=== PATIENT | male | born 1975 | race Caucasian/White ===

== ENCOUNTER 2019-11-01 12:18 | Emergency (ER) | payer MEDICAID, SELFPAY ==
[2019-11-01 12:28] VITALS: BP 161/76; PULSE 72; RESP 22; TEMP 37.5; O2SAT 98
--- NOTE | 2019-11-01 12:29 | ED.SKABFB ---
HPI - Skin/Abscess/Foreign Bdy General Chief complaint: Skin/Abscess/Foreign Body Stated complaint: sore on right leg Time Seen by Provider: 11/01/19 12:29 Source: patient and RN notes reviewed History of Present Illness HPI narrative: Patient is a 44-year-old male that presents the urgent care with complaints of a right leg sore . Patient states that it started approximately 5 to 6 days ago and he was seen at [facility] ER which ruled out blood clot at that time. Patient states that he was put on clindamycin and told that he had an infection in the leg . Patient states the redness, swelling, pain has increased and is now behind the knee and up the right thigh . Patient states that he is also been running a low-grade fever. States that he has been taking the medication as prescribed without any improvement. Patient was also prescribed [place] and states that the pain is still known and severe despite taking the medication. Patient states that he is technically homeless and has been sleeping in a car and therefore has increased swelling in bilateral lower extremities. Denies of any known trauma or injury to the leg. No other acute complaints. No acute distress noted. Patient read the plan of care. Related Data Home Medications Medication Instructions Recorded Confirmed lisinopril-hydrochlorothiazide 1 tablet PO DAILY 11/01/19 11/01/19 venlafaxine 75 mg PO DAILY 11/01/19 11/01/19 Allergies Allergy/AdvReac Type Severity Reaction Status Date / Time Penicillins Allergy Rash Verified 11/01/19 12:44 Review of Systems Review of Systems: Narrative: CONSTITUTIONAL: Denies fever, chills, or sweats. EYES: Denies visual changes, redness, or discharge. ENT: Denies rhinorrhea, congestion, sore throat, or otalgia. CARDIOVASCULAR: Denies chest pain, palpitations, or edema. RESPIRATORY: Denies cough or dyspnea. GASTROINTESTINAL: Denies abdominal pain, nausea, vomiting, or diarrhea. GENITOURINARY: Denies dysuria or hematuria. SKIN: Reports of right leg swelling and redness MUSCULOSKELETAL: Denies back pain, joint pain, or myalgia. NEUROLOGIC: Denies headache, numbness, or weakness. All other systems reviewed are negative, except as documented in HPI. PMFSH Comments At the time of my signature, I reviewed and agree with the nursing past medical, surgical, social, and family history. There is no relevant family history pertinent to the patient complaint. Exam Narrative: Exam Narrative: GENERAL: This is a well-nourished, well-developed patient, in no apparent distress. HEAD: normocephalic, atraumatic. EYES: PERRL. Sclera clear/white. Vision is grossly intact. EARS: External ears normal NOSE: External nose normal with no obvious nasal discharge THROAT: Mucous membranes moist NECK: Neck supple SKIN: Approximately 10 x 20 cm area of firm erythema to the medial right knee extending to the posterior knee and into the posterior right thigh NEURO: awake, alert, and oriented to person, place and time. There were no obvious focal neurologic abnormalities. EXTREMITIES: Right calf tenderness with faint right pedal pulse secondary to 3+ pitting edema to right lower extremity (more localized to the right foot); 2+ pitting edema to left lower extremity Course Vital Signs Vital signs: Vital Signs Temperature 99.5 F 11/01/19 12:28 Pulse Rate 72 11/01/19 12:28 Respiratory Rate 22 H 11/01/19 12:28 Blood Pressure 161/76 H 11/01/19 12:28 Pulse Oximetry 98 11/01/19 12:28 Temperature 99.5 F 11/01/19 12:28 Pulse Rate 72 11/01/19 12:28 Respiratory Rate 22 H 11/01/19 12:28 Blood Pressure 161/76 H 11/01/19 12:28 Pulse Oximetry 98 11/01/19 12:28 Reviewed?patient is informed that they may have pre-hypertension or hypertension based on a blood pressure reading in the department. I recommend the patient call the primary care provider listed on their discharge instructions or a physician of their choice this week to arrange
== END 2019-11-01 12:45 | disposition short-term general hospital (02) ==
PROVIDERS: Emergency Provider Nurse Practitioner Family; PCP Internal Medicine
DX: L03.115 Cellulitis of right lower limb (principal); E78.00 Pure hypercholesterolemia, unspecified; I10 Essential (primary) hypertension; F43.10 Post-traumatic stress disorder, unspecified
CPT/HCPCS: 99212; G0463

== ENCOUNTER 2022-01-02 16:13 | Emergency (ER) | payer OTHER, MEDICAID, SELFPAY ==
--- NOTE | ~2022-01-02 | XR_ITS ---
EXAMINATION: XR hip LT 2V w AP pelvis INDICATION: Left hip pain TECHNIQUE: AP view the pelvis and two views of the left hip are obtained. COMPARISON: None available FINDINGS: Bone alignment is normal. There is no fracture. There is mild osteoarthritis of the hips. T he soft tissues are unremarkable. IMPRESSION: 1. No acute osseous abnormality. Reviewed, dictated and finalized at location B.
[2022-01-02 16:17] VITALS: BP 188/103; PULSE 88; RESP 18; TEMP 36.7; O2SAT 97
--- NOTE | 2022-01-02 16:25 | ED.GENADULT ---
HPI - General Adult General Chief complaint: Extremity Injury, Lower Stated complaint: hip injury/work comp Time Seen by Provider: 01/02/22 16:19 History of Present Illness HPI narrative: 46-year-old male presents emergency room secondary pain from the left hip rating down the left leg. Been on for couple days. He works driving a forklift. He denies any trauma or falls. Is never had any problems like this before. He went to [facility] today and they told him come to the emergency room immediately for evaluation. No urinary or bladder incontinence is noted. No abdominal pain. Patient had a history of hypertension in the past but he stopped taking his medication because he was having a reaction to it and it was an NICOLE inhibitor. However he states that he is under much less stress he states his blood pressure when he went to the [facility] today was normal. Related Data Home Medications Medication Instructions Recorded Confirmed clindamycin HCl 300 mg capsule 300 mg PO Q8H 11/01/19 11/01/19 lisinopril 20 1 tablet PO DAILY 11/01/19 11/01/19 mg-hydrochlorothiazide 25 mg tablet venlafaxine 75 mg tablet,extended 75 mg PO DAILY 11/01/19 11/01/19 release 24 hr Allergies Allergy/AdvReac Type Severity Reaction Status Date / Time Penicillins Allergy Rash Verified 11/01/19 12:44 Review of Systems Review of Systems: CONSTITUTIONAL: Denies fever, chills, or sweats. EYES: Denies visual changes, redness, or discharge. ENT: Denies rhinorrhea, congestion, sore throat, or otalgia. CARDIOVASCULAR: Denies chest pain, palpitations, or edema. RESPIRATORY: Denies cough or dyspnea. GASTROINTESTINAL: Denies abdominal pain, nausea, vomiting, or diarrhea. GENITOURINARY: Denies dysuria or hematuria. SKIN: Denies rash or itching. MUSCULOSKELETAL: Pain to the left hip with radiation down the posterior lateral aspect of the left leg.. NEUROLOGIC: Denies headache, numbness, or weakness. PSYCHIATRIC: Denies anxiety or depression. [facility] Past Medical History Medical History Hypertension Social History Social History Occupation/Education: occupation Additional occupation/education comments: class a [employer] Exam Narrative: APPEARANCE: Well appearing, no pain or distress, well-nourished. Patient is obese Head normocephalic and atraumatic. EYES: PERRLA/EOMI, conjunctivae very clear. NOSE: Normal with no drainage EARS:TMS clear Matt French, with good light reflex. THROAT: Pharynx clear, no exudate. NECK: Supple. No adenopathy, no masses. RESPIRATORY: Airway patent, respirations nonlabored. Clear to auscultation bilaterally, no rales, rhonchi, wheezing. CARDIOVASCULAR: Regular rate and rhythm without murmurs, rubs, or gallops. ABDOMINAL: Soft, nontender, nondistended, no hepatosplenomegaly Musculoskeletal: Moves all extremities. Strength/ROM intact, No edema, No calf tenderness. Has reproducible tenderness to palpation to the left buttock. No tenderness to palpation in the lumbar spine. Pain with any range of motion to the left hip NEURO: Alert. Cranial nerves II through XII intact. Normal gait. Good coordination. Nonfocal examination. SKIN:: Warm, dry. Normal Color PSYCHIATRIC: Normal affect/mood, normal interaction Course Vital Signs Vital signs: Vital Signs Temperature 98.0 F 01/02/22 16:17 Pulse Rate 88 01/02/22 16:17 Respiratory Rate 18 01/02/22 16:17 Blood Pressure 188/103 H 01/02/22 16:17 Pulse Oximetry 97 01/02/22 16:17 Temperature 98.0 F 01/02/22 16:17 Pulse Rate 88 01/02/22 16:17 Respiratory Rate 18 01/02/22 16:17 Blood Pressure 188/103 H 01/02/22 16:17 Pulse Oximetry 97 01/02/22 16:17 Medical Decision Making [facility] Narrative Medical decision making narrative: X-ray of his left hip shows some mild degenerative disease however I do not think this is the cause of his yvette
[2022-01-02] MEDS: KETOROLAC (*BKC) 60 MG/2 ML VIAL IM (17:17)
== END 2022-01-02 17:34 | disposition home or self-care (01) ==
PROVIDERS: Emergency Provider Emergency Medicine; PCP Internal Medicine
DX: M54.16 Radiculopathy, lumbar region (principal); E66.9 Obesity, unspecified; I10 Essential (primary) hypertension
CPT/HCPCS: 73502; 96372; 99283; J1885

== ENCOUNTER 2022-09-03 14:06 | Emergency (ER) | payer OTHER, MEDICAID, SELFPAY ==
--- NOTE | ~2022-09-03 | XR_ITS ---
EXAMINATION: XR knee LT min 4V DATE: 09/03/2022 15:26 INDICATION: Left knee injury and pain. TECHNIQUE: 4 views of left knee were obtained. COMPARISON: None. FINDINGS: Bone alignment is normal. No fracture. There is mild tricompartmental osteoarthritis. There is a moderate-sized knee joint effusion. IMPRESSION: 1. Mild left knee osteoarthritis. 2. Moderate-sized left knee joint effusion. Reviewed, dictated and finalized at location A. [employer]
[2022-09-03 15:01] VITALS: BP 172/98; PULSE 69; RESP 18; TEMP 36.5; O2SAT 100
--- NOTE | 2022-09-03 16:59 | PC.NURSE ---
Pt refused to use urinal, wheeled to bathroom. Stand and pivot independent.
[2022-09-03 17:00] VITALS: PULSE 79; RESP 16; TEMP 36.3; O2SAT 96
[2022-09-03 17:08] VITALS: BP 158/93
--- NOTE | 2022-09-03 17:30 | ED.GENADULT ---
HPI - General Adult General Chief complaint: Extremity Injury, Lower Stated complaint: left knee injury Time Seen by Provider: 09/03/22 16:59 Source: patient Mode of arrival: ambulatory Limitations: no limitations History of Present Illness HPI narrative: This is a 47-year-old male who reports to the ED with chief complaint of left knee pain onset 5 days ago. This occurred after he knelt down to pick something up off the floor. He had his left knee knelt on the floor and then pushed off and felt a pop. He had immediate pain in the left knee but has been able to weight-bear with pain since then. He does report some swelling in the left knee as well. Denies warmth or redness. Denies any further site of pain or injury. Denies fevers, chills, numbness, weakness. Related Data Home Medications Medication Instructions Recorded Confirmed clindamycin HCl 300 mg capsule 300 mg PO Q8H 11/01/19 11/01/19 lisinopril 20 1 tablet PO DAILY 11/01/19 11/01/19 mg-hydrochlorothiazide 25 mg tablet venlafaxine 75 mg tablet,extended 75 mg PO DAILY 11/01/19 11/01/19 release 24 hr Allergies Allergy/AdvReac Type Severity Reaction Status Date / Time Penicillins Allergy Rash Verified 09/03/22 17:06 Review of Systems Review of Systems: CONSTITUTIONAL: Denies fever, chills, or sweats. SKIN: Denies rash or itching. Denies skin changes. MUSCULOSKELETAL: Endorses left knee pain. Endorses left knee swelling. Denies back pain, other joint pain, or myalgia. NEUROLOGIC: Denies headache, numbness, dizziness, or weakness. PSYCHIATRIC: Denies anxiety or depression. [facility] Past Medical History Medical History Hypertension Social History Social History Occupation/Education: occupation Additional occupation/education comments: bulk truck driver Exam Narrative: GENERAL: Well-appearing, well-nourished, and in no acute distress. HEAD: Normocephalic, atraumatic. EXTREMITIES: Left knee: Very mild swelling to the left knee. There is no redness, or warmth. Mild medial and lateral joint line tenderness. Full active and passive range of motion. Able to bear weight in room. Right knee: Benign. MSK otherwise benign. Normal range of motion. No edema. Normal distal pulses. SKIN: Warm, dry, no rash. No redness. NEURO: Alert and oriented x3. No focal deficits. PSYCH: Normal mood and affect. Course Vital Signs Vital signs: Vital Signs Temperature 97.7 F 09/03/22 15:01 Pulse Rate 69 09/03/22 15:01 Respiratory Rate 18 09/03/22 15:01 Blood Pressure 172/98 H 09/03/22 15:01 Pulse Oximetry 100 09/03/22 15:01 Oxygen Delivery Room Air 09/03/22 15:01 Temperature 97.4 F L 09/03/22 17:00 Pulse Rate 79 09/03/22 17:00 Respiratory Rate 16 09/03/22 17:00 Blood Pressure 158/93 H 09/03/22 17:08 Pulse Oximetry 96 09/03/22 17:00 Oxygen Delivery Room Air 09/03/22 17:[address] [facility] Narrative Medical decision making narrative: This is a 47-year-old male who presents to the ED with chief complaint of left knee pain. He was kneeling down on the ground and lifted up off of his left knee and felt a pop and pain. Vitals are stable here in the ED. Exam shows mild swelling and mild tenderness along the joint lines. No concerning findings for joint infection or other emergent conditions. No systemic signs. Knee is stable. X-rays show mild arthritis but no acute osseous findings. He will be discharged in stable condition. Supportive measures discussed with Tylenol and ibuprofen. Also discussed that he may need to see Dr. Schmitt and orthopedics. Given return precautions for any new or worsening pain. Patient is understanding and agreeable with the plan for discharge. Vital Signs Vital Signs: Vital Signs Temperature 97.7 F 09/03/22 15:01 Pulse Rate 69 09/03/22 15:01 Respira
[2022-09-03 18:15] VITALS: BP 149/95; PULSE 69; RESP 16; TEMP 37.1; O2SAT 99
== END 2022-09-03 18:15 | disposition home or self-care (01) ==
PROVIDERS: Emergency Provider Physician Assistant; PCP Internal Medicine
DX: M17.12 Unilateral primary osteoarthritis, left knee (principal); I10 Essential (primary) hypertension
CPT/HCPCS: 73564; 99283